=== PATIENT | female | born 1930 | race Caucasian/White ===

== ENCOUNTER 2018-07-20 15:14 | Emergency (ER) | payer OTHER ==
[~2018-07-20] VITALS: Ht 157.5 cm; Wt 47.6 kg
[2018-07-20] MEDS ORDERED: ASPIR 8181 MG PO (15:55)
[2018-07-20] MEDS ORDERED: LISINOPRIL40 MG PO (15:55)
[2018-07-20] MEDS ORDERED: HYDRODIURIL12.5 MG PO (15:56)
[2018-07-20] MEDS ORDERED: CILOSTAZOL50 MG PO (15:56)
[2018-07-20] MEDS ORDERED: ATORVASTATIN CA40 MG PO (15:56)
[2018-07-20] MEDS ORDERED: NORVASC5 MG PO (15:56)
== END 2018-07-20 18:17 | disposition home or self-care (01) ==
LOC: ER 15:14
DX: S70.02XA Contusion of left hip, initial encounter (principal); S00.83XA Contusion of other part of head, initial encounter; W06.XXXA Fall from bed, initial encounter; Y93.84 Activity, sleeping; Y92.092 Bedroom in other non-institutional residence as the place of occurrence of the external cause; Y99.8 Other external cause status